=== PATIENT | female | born 1980 | race Caucasian/White ===

== ENCOUNTER 2018-05-10 05:35 | Day surgery (SDC) | payer OTHER ==
[~2018-05-10] VITALS: Ht 167.6 cm; Wt 77.1 kg
[~2018-05-10 05:35] MED LIST: AMPHETAMINE SAL10 MG PO; BRINTELLIX20 MG PO; BUSPAR15 MG PO; ENDOCET 5-3251 EACH PO; FIORICET 50-301 EAC1 PO; HARD NAILS2500 MCG PO; LATUDA60 MG PO; MOTRIN800 MG PO; VALIUM10 MG PO; VITAMIN D2000 UNIT PO; VYVANSE70 MG PO
[2018-05-10 09:15] VITALS: BP 127/76
== END 2018-05-10 09:40 | disposition home or self-care (01) ==
LOC: SDC 05:35
PROC: 09Q Ear, Nose, Sinus, Repair (ICD-10-PCS; principal; 2018-05-10)
DX: J34.89 Other specified disorders of nose and nasal sinuses (principal); M95.0 Acquired deformity of nose; Z88.2 Allergy status to sulfonamides; F17.210 Nicotine dependence, cigarettes, uncomplicated; J45.909 Unspecified asthma, uncomplicated; Z88.5 Allergy status to narcotic agent
CPT/HCPCS: J0330; J1100; J2405; J3010; Q0175